=== PATIENT | female | born 1985 | race Caucasian/White ===

== ENCOUNTER 2025-06-10 17:44 | Inpatient (IN) | payer MEDICAID ==
[~2025-06-10] VITALS: Ht 170.2 cm; Wt 74.8 kg
[2025-06-10 17:52] VITALS: O2SAT 100
[2025-06-10 20:26] LABS: BASOPHILS % 0.9 % (0.0-2.0); EOSINOPHILS % 0.3 % (0.0-5.0); HEMATOCRIT. 34.0 % (36.0-48.0); HEMOGLOBIN. 10.9 g/dL (12.0-16.0); LYMPHOCYTES % 39.3 % (20.0-50.0); MEAN PLATELET VOLUME 6.7 fl (7.4-10.4); MONOCYTES % 6.0 % (2.0-8.0); NEUTROPHILS % 53.5 % (40.0-76.0); PLATELET 195 x1000/uL (130-400); RED BLOOD CELL COUNT 3.82 mill/uL (4.2-5.4); RED CELL DISTRIBUTION WIDTH 19.4 % (11.6-14.6)
[2025-06-10 20:39] LABS: CREATININE 1.0 mg/dL (0.6-1.0); UREA NITROGEN BLOOD 9 mg/dL (9-23)
[2025-06-10 20:44] LABS: HCG SCREEN NEGATIVE
[2025-06-10] MEDS: SODIUM CHLORIDE 0.9% 1,000 ML IV ONE (23:33)
[2025-06-11] MEDS: MVI, ADULT NO.1 10 ML, FOLIC ACID 1 MG, THIAMINE HCL 100 MG in SODIUM CHLORIDE 0.9% 1,0... IV SCH (00:15)
[2025-06-11] MEDS ORDERED: CLONIDINE 0.1MG TABLET PO PRN (00:15)
[2025-06-11] MEDS: DEXT 5%/0.45% NACL 1000ML 1,000 ML IV SCH (00:15)
[2025-06-11] MEDS ORDERED: ONDANSETRON HCL 4MG/2ML INJ IV PRN (00:15)
[2025-06-11] MEDS ORDERED: LORAZEPAM 2MG/ML UD SYRINGE IV PRN (00:15)
[2025-06-11] MEDS ORDERED: MAGNESIUM/ALUMINUM HYDROXIDE/SIMETHICONE 30ML UDC PO PRN (00:15)
[2025-06-11] MEDS ORDERED: HYDROCODONE/ACETAMINOPHEN 5/325MG TABLET PO PRN (00:15)
[2025-06-11] MEDS ORDERED: ACETAMINOPHEN 325MG TABLET PO PRN (00:15)
[2025-06-11] MEDS ORDERED: ZOLPIDEM TARTRATE 5MG TABLET PO PRN (00:15)
[2025-06-11 01:11] VITALS: BP 121/67; PULSE 85; RESP 18; TEMP 36.9184
[2025-06-11 04:00] VITALS: BP 104/66; PULSE 97; RESP 18; TEMP 36.2; O2SAT 97
[2025-06-11] MEDS ORDERED: ENOXAPARIN 40MG/0.4ML SYR SUBCUT SCH (09:00)
[2025-06-11] MEDS ORDERED: PANTOPRAZOLE SODIUM 40 MG/VIAL IV SCH (09:00)
== END 2025-06-11 07:46 | disposition left against medical advice (07) | DRG 52 ==
LOC: ER 17:44 → EDBD 17:44 → EDBEDREQTM 23:57 → EDBEDREQ 23:57 → ENRESERV 06-11 00:13 → 6EST 06-11 01:15
PROVIDERS: ADMIT Internal Medicine; ATTEND Internal Medicine
DX: G93.41 Metabolic encephalopathy (principal); F10.129 Alcohol abuse with intoxication, unspecified; Y90.8 Blood alcohol level of 240 mg/100 ml or more; Z53.29 Procedure and treatment not carried out because of patient's decision for other reasons; Z79.899 Other long term (current) drug therapy
CPT/HCPCS: 36415; 80048; 80320; 84703; 85025; 93005; 93970; 99285; J3411; J3490; J7030; G0480

== ENCOUNTER 2025-06-13 18:43 | Emergency (ER) | payer MEDICAID ==
[~2025-06-13] VITALS: Ht 162.6 cm; Wt 64.0 kg
[2025-06-13 18:57] VITALS: BP 111/76; PULSE 92; RESP 16; TEMP 36.8; O2SAT 99
[2025-06-13 19:48] LABS: BASOPHILS % 0.6 % (0.0-2.0); EOSINOPHILS % 0.3 % (0.0-5.0); HEMATOCRIT. 33.4 % (36.0-48.0); HEMOGLOBIN. 10.7 g/dL (12.0-16.0); LYMPHOCYTES % 27.2 % (20.0-50.0); MEAN PLATELET VOLUME 7.2 fl (7.4-10.4); MONOCYTES % 9.4 % (2.0-8.0); NEUTROPHILS % 62.5 % (40.0-76.0); PLATELET 174 x1000/uL (130-400); RED BLOOD CELL COUNT 3.79 mill/uL (4.2-5.4); RED CELL DISTRIBUTION WIDTH 20.1 % (11.6-14.6)
[2025-06-13 20:05] LABS: HCG SCREEN NEGATIVE
[2025-06-13 20:06] LABS: CREATININE 1.0 mg/dL (0.6-1.0); UREA NITROGEN BLOOD 10 mg/dL (9-23)
[2025-06-13 20:08] LABS: ASPARTATE AMINOTRANSFERASE 32 IU/L (<34); BILIRUBIN DIRECT 0.1 mg/dL (<=3.0); BILIRUBIN TOTAL 0.4 mg/dL (0.1-1.0); PROTEIN TOTAL 7.3 g/dL (6.0-8.3)
== END 2025-06-13 19:43 | disposition left against medical advice (07) ==
LOC: ER 18:43
DX: F10.129 Alcohol abuse with intoxication, unspecified (principal); E87.6 Hypokalemia; Z79.899 Other long term (current) drug therapy; Y90.8 Blood alcohol level of 240 mg/100 ml or more
CPT/HCPCS: 36415; 80048; 80076; 80307; 80320; 80329; 84703; 85025; 99283; G0480

== ENCOUNTER 2025-07-01 10:37 | Emergency (ER) | payer MEDICAID ==
[~2025-07-01] VITALS: Ht 170.2 cm; Wt 59.0 kg
[2025-07-01 10:44] VITALS: O2SAT 98
[2025-07-01 11:46] LABS: BASOPHILS % 1.5 % (0.0-2.0); EOSINOPHILS % 0.3 % (0.0-5.0); HEMATOCRIT. 33.5 % (36.0-48.0); HEMOGLOBIN. 10.8 g/dL (12.0-16.0); LYMPHOCYTES % 41.9 % (20.0-50.0); MEAN PLATELET VOLUME 6.8 fl (7.4-10.4); MONOCYTES % 3.6 % (2.0-8.0); NEUTROPHILS % 52.7 % (40.0-76.0); PLATELET 304 x1000/uL (130-400); RED BLOOD CELL COUNT 3.81 mill/uL (4.2-5.4); RED CELL DISTRIBUTION WIDTH 20.1 % (11.6-14.6)
[2025-07-01 12:02] LABS: CREATININE 1.1 mg/dL (0.6-1.0); UREA NITROGEN BLOOD 12.0 mg/dL (9-23)
[2025-07-01 14:26] VITALS: BP 103/63; PULSE 95; RESP 16; TEMP 36.1; O2SAT 97
== END 2025-07-01 15:54 | disposition left against medical advice (07) ==
LOC: ER 10:37 → CANBEDREQ 13:55 → ER 15:54
DX: T51.0X1A Toxic effect of ethanol, accidental (unintentional), initial encounter (principal); X58.XXXA Exposure to other specified factors, initial encounter; Y93.89 Activity, other specified; Y92.89 Other specified places as the place of occurrence of the external cause; Y99.8 Other external cause status; Y90.8 Blood alcohol level of 240 mg/100 ml or more
CPT/HCPCS: 36415; 80048; 80320; 85025; 99283; G0480